=== PATIENT | male | born 1995 ===

== ENCOUNTER 2017-01-07 18:43 | Emergency (ER) | payer OTHER, MEDICAID ==
[2017-01-07 18:51] VITALS: BP 129/70; PULSE 73; RESP 18; TEMP 99; O2SAT 100
--- NOTE | 2017-01-07 19:19 | ED PDOC ---
Upper Extremity Pain/Injury Time Seen by Provider: 01/07/17 19:03 Chief Complaint (Nursing): Upper Extremity Problem/Injury Chief Complaint (Provider): Left Hand injury History Per: Patient History/Exam Limitations: no limitations Onset/Duration Of Symptoms: Hrs (prior to arrival ) Current Symptoms Are (Timing): Still Present Additional Complaint(s): Flaquito Valdez is a 21 year old male presenting to the ED for an evaluation of a laceration to his left second finger that he sustained just prior to arrival as he was cutting meat for a sandwich he was making while at work. He reports wound bled immediately, but notes he did not clean it. The patient is right hand dominant. Of note, the patient states his Tetanus is not up to date and is unsure of the name of his primary care physician. Past Medical History Reviewed: Historical Data, Nursing Documentation, Vital Signs Vital Signs: Last Vital Signs Temp 99 F 01/07/17 18:47 Pulse 73 01/07/17 18:47 Resp 18 01/07/17 18:47 BP 129/70 01/07/17 18:47 Pulse Ox 100 01/07/17 18:47 - Medical History PMH: No Chronic Diseases - Family History Family History: States: Unknown Family Hx - Social History Current smoker - smoking cessation education provided: No Ex-Smoker (has not smoked in the last 12 months): No Alcohol: None Drugs: Denies - Home Medications Home Medications: Ambulatory Orders Medication Instructions Recorded Cephalexin [Keflex] 1 tab PO QID #28 cap 06/17/14 Ibuprofen [Motrin] 1 tab PO Q8 PRN #21 tab 06/17/14 Sulfamethoxazole/Trimethopri 1 tab PO BID #14 tab 06/17/14 [Bactrim Ds 800 mg-160 mg] Clindamycin [Cleocin] 300 mg PO TID #30 cap 04/14/15 Sulfamethoxazole/Trimethopri 1 tab PO BID #14 tab 04/14/15 [Bactrim Ds 800 mg-160 mg] Cephalexin [Keflex] 500 mg PO Q6 #28 cap 06/23/15 Sulfamethoxazole/Trimethoprim 2 tab PO BID #28 tab 06/23/15 [Bactrim DS 800 mg-160 mg] - Allergies Allergies/Adverse Reactions: Allergies Allergy/AdvReac Type Severity Reaction Status Date / Time No Known Allergies Allergy Verified 06/17/14 13:48 Review of Systems ROS Statement: Except As Marked, All Systems Reviewed And Found Negative Musculoskeletal: Positive for: Hand Pain (injury to left second finger ) Physical Exam - Reviewed Nursing Documentation Reviewed: Yes Vital Signs Reviewed: Yes - Physical Exam Appears: Positive for: Non-toxic, No Acute Distress Head Exam: Positive for: ATRAUMATIC, NORMOCEPHALIC Extremity: Positive for: Other (1 cm laceration to distal phalynx, (+)mild active bleeding, (-)nailbed involvement, sensation intact) Neurologic/Psych: Positive for: Alert, Oriented (x3) - ECG O2 Sat by Pulse Oximetry: 100 (RA) Pulse Ox Interpretation: Normal Medical Decision Making Medical Decision Making: Time: 19:03 Impression: Left Hand Injury Plan: * See Procedure Note for wound repair * Adacel 0.5 ml IM Patient was advised to keep wound clean and dry for the first 24 hours, and then to clean wound daily and keep it dressed. Advised to return to the ED in 10-12 days for suture removal. Scribe Attestation: Documented by Jaclyn Vang, acting as a scribe for Nora Mariee PA-C. Provider Scribe Attestation: All medical record entries made by the Scribe were at my direction and personally dictated by me. I have reviewed the chart and agree that the record accurately reflects my personal performance of the history, physical exam, medical decision making, and the department course for this patient. I have also personally directed, reviewed, and agree with the discharge instructions and disposition. Procedures - Laceration/Wound Repair Left Hand Wound Length (cm): 1 Wound's Depth, Shape: superficial Wound Explored: clean Betadine Prep?: Yes Suture Size/Type: 5:0, nylon (ethilon) Number of Sutures: 1 Wound Complexity: Simple Disposition - Clinical Impression Clinical Impression: Finger laceration - Patient ED Disposition Is Patient to be Admitted: No Counseled Patient/Family Regarding: Diagnosis, Need For Followup - Disposition Referrals: [facility] [Outside] Disposition: Routine/Home Disposition Time: 19:45 Condition: STABLE Additional Instructions: Keep wound clean and dry. Keep wound covered. F/U with PMD, Urgent Care, or Return in 10-12 days for suture removal and wound check. Instructions: Care For Your Stitches (ED), Laceration (ED) Forms: [employer] (Ind[place]ian), [facility] ED School/Work Excuse Print Language: AZERI
== END 2017-01-07 20:50 | disposition home or self-care (01) ==
LOC: H.ER 18:43
DX: S61.211A Laceration without foreign body of left index finger without damage to nail, initial encounter (principal); W26.0XXA Contact with knife, initial encounter; Y99.0 Civilian activity done for income or pay; Z23 Encounter for immunization

== ENCOUNTER 2017-01-18 11:26 | Emergency (ER) | payer OTHER, MEDICAID ==
[2017-01-18 11:34] VITALS: BP 117/63; PULSE 87; RESP 20; TEMP 98.7; O2SAT 95; BMI 33.4
--- NOTE | 2017-01-18 12:08 | ED PDOC ---
HPI: Wound Care - HPI Chief Complaint (Nursing): Suture/Staple Removal Chief Complaint (Provider): Suture removal History Per: Patient Additional Complaint(s): Pt is a 21 yo male, no PMH, presents to ED for suture removal on left index finger. No redness or swelling noted. No complaints. Past Medical History Reviewed: Nursing Documentation, Vital Signs Vital Signs: Last Vital Signs Temp 98.7 F 01/18/17 11:33 Pulse 87 01/18/17 11:33 Resp 20 01/18/17 11:33 BP 117/63 01/18/17 11:33 Pulse Ox 95 01/18/17 11:33 - Medical History PMH: No Chronic Diseases - Surgical History Surgical History: No Surg Hx - Family History Family History: States: Unknown Family Hx - Living Arrangements Living Arrangements: With Family - Social History Current smoker - smoking cessation education provided: No Alcohol: None Drugs: Denies - Home Medications Home Medications: Ambulatory Orders Medication Instructions Recorded Cephalexin [Keflex] 1 tab PO QID #28 cap 06/17/14 Ibuprofen [Motrin] 1 tab PO Q8 PRN #21 tab 06/17/14 Sulfamethoxazole/Trimethopri 1 tab PO BID #14 tab 06/17/14 [Bactrim Ds 800 mg-160 mg] Clindamycin [Cleocin] 300 mg PO TID #30 cap 04/14/15 Sulfamethoxazole/Trimethopri 1 tab PO BID #14 tab 04/14/15 [Bactrim Ds 800 mg-160 mg] Cephalexin [Keflex] 500 mg PO Q6 #28 cap 06/23/15 Sulfamethoxazole/Trimethoprim 2 tab PO BID #28 tab 06/23/15 [Bactrim DS 800 mg-160 mg] - Allergies Allergies/Adverse Reactions: Allergies Allergy/AdvReac Type Severity Reaction Status Date / Time No Known Allergies Allergy Verified 06/17/14 13:48 Review of Systems ROS Statement: Except As Marked, All Systems Reviewed And Found Negative Musculoskeletal: Positive for: Other (suture removal) Physical Exam - Reviewed Nursing Documentation Reviewed: Yes Vital Signs Reviewed: Yes - Physical Exam Appears: Positive for: Well, Non-toxic, No Acute Distress Head Exam: Positive for: ATRAUMATIC, NORMAL INSPECTION, NORMOCEPHALIC Skin: Positive for: Normal Color, Warm, DRY Eye Exam: Positive for: EOMI, Normal appearance, PERRL ENT: Positive for: Normal ENT Inspection Neck: Positive for: Normal, Painless ROM Cardiovascular/Chest: Positive for: Regular Rate, Rhythm Respiratory: Positive for: CNT, Normal Breath Sounds Gastrointestinal/Abdominal: Positive for: Normal Exam, Bowel Sounds, Soft Back: Positive for: Normal Inspection Extremity: Positive for: Normal ROM Neurologic/Psych: Positive for: Alert, Oriented Comments: 1 suture removed by movie writer, no redness, swelling, edema or drainage from site - ECG O2 Sat by Pulse Oximetry: 95 Medical Decision Making Medical Decision Making: suture removed by movie writer Disposition - Clinical Impression Clinical Impression: Removal of suture - Patient ED Disposition Is Patient to be Admitted: No - Disposition Disposition: Routine/Home Disposition Time: 12:08 Condition: STABLE - POA Present On Arrival: None
== END 2017-01-18 12:19 | disposition home or self-care (01) ==
LOC: H.ER 11:26
DX: Z48.02 Encounter for removal of sutures (principal)

== ENCOUNTER 2018-04-19 12:47 | Emergency (ER) | payer MEDICAID ==
[2018-04-19 12:48] VITALS: BMI 32.6
--- NOTE | 2018-04-19 14:25 | ED PDOC ---
HPI: Abdomen Time Seen by Provider: 04/19/18 13:30 Chief Complaint (Nursing): Abdominal Pain Chief Complaint (Provider): Abdominal Pain History Per: Patient History/Exam Limitations: no limitations Onset/Duration Of Symptoms: Days (x1 day) Associated Symptoms: denies: Fever, Vomiting, Diarrhea Exacerbating Factors: denies: Cough Additional Complaint(s): Flaquito Valdez is a 22 year old male with no past medical history, who presents to the emergency department complaining of pain under the left rib that radiates to his chest, onset yesterday. Patient states that it is worse with deep breath but is unchanged with movement. He denies any fever, cough, diarrhea, or vomiting. no recent falls or straining. no history of blood clots or family history of it. PMD: Gini Barrios Past Medical History Reviewed: Historical Data, Nursing Documentation, Vital Signs Vital Signs: Last Vital Signs Temp 98.2 F 04/19/18 12:56 Pulse 94 H 04/19/18 12:56 Resp 16 04/19/18 12:56 BP 129/84 04/19/18 12:56 Pulse Ox 97 04/19/18 12:56 - Medical History PMH: No Chronic Diseases - Surgical History Surgical History: No Surg Hx - Family History Family History: Denies: No Known Family Hx Other Family History: no family history of dvt and pe. no history of cad - Social History Current smoker - smoking cessation education provided: No Ex-Smoker (has not smoked in the last 12 months): No Alcohol: None Drugs: Denies - Home Medications Home Medications: Ambulatory Orders Medication Instructions Recorded Cephalexin [Keflex] 1 tab PO QID #28 cap 06/17/14 Ibuprofen [Motrin] 1 tab PO Q8 PRN #21 tab 06/17/14 Sulfamethoxazole/Trimethopri 1 tab PO BID #14 tab 06/17/14 [Bactrim Ds 800 mg-160 mg] Clindamycin [Cleocin] 300 mg PO TID #30 cap 04/14/15 Sulfamethoxazole/Trimethopri 1 tab PO BID #14 tab 04/14/15 [Bactrim Ds 800 mg-160 mg] Cephalexin [Keflex] 500 mg PO Q6 #28 cap 06/23/15 Sulfamethoxazole/Trimethoprim 2 tab PO BID #28 tab 06/23/15 [Bactrim DS 800 mg-160 mg] - Allergies Allergies/Adverse Reactions: Allergies Allergy/AdvReac Type Severity Reaction Status Date / Time No Known Allergies Allergy Verified 04/19/18 12:56 Review of Systems ROS Statement: Except As Marked, All Systems Reviewed And Found Negative Constitutional: Negative for: Fever Respiratory: Negative for: Cough Gastrointestinal: Positive for: Abdominal Pain (left rib pain radiating to chest ). Negative for: Vomiting, Diarrhea Physical Exam - Reviewed Nursing Documentation Reviewed: Yes Vital Signs Reviewed: Yes - Physical Exam Appears: Positive for: Non-toxic, No Acute Distress Head Exam: Positive for: ATRAUMATIC, NORMOCEPHALIC Skin: Positive for: Normal Color, Warm, Dry Eye Exam: Positive for: Normal appearance, EOMI, PERRL ENT: Positive for: Normal ENT Inspection Neck: Positive for: Normal, Painless ROM, Supple Cardiovascular/Chest: Positive for: Regular Rate, Rhythm, Chest Non Tender. Negative for: Murmur Respiratory: Positive for: Normal Breath Sounds. Negative for: Respiratory Distress Gastrointestinal/Abdominal: Positive for: Normal Exam, Soft. Negative for: Tenderness Back: Positive for: Normal Inspection. Negative for: L CVA Tenderness, R CVA Tenderness, Vertebral Tenderness Extremity: Positive for: Normal ROM. Negative for: Pedal Edema, Deformity Neurologic/Psych: Positive for: Alert, Oriented (x3) - Laboratory Results Result Diagrams: 04/19/18 15:30 04/19/18 15:30 - ECG ECG Rhythm: Positive for: Sinus Rhythm (normal) Rate: 76 O2 Sat by Pulse Oximetry: 97 (RA) Pulse Ox Interpretation: Normal Medical Decision Making Medical Decision Making: Time: 1420 Impression: l chest wall pain with breathing, rule out cardiac versus Musculoskeletal pain. more likely muscular as pt has no cardiac risk factors. Plan: --Chest xray 2 views: to rule out cardiac or pulmonary etiology --CMP --Troponin I --CBC with differential --Motrin Tab 600 mg PO 1549 Chest X-ray FINDINGS: LUNGS: No active pulmonary disease. PLEURA: No significant pleural effusion identified. No pneumothorax apparent. CARDIOVASCULAR: No aortic atherosclerotic calcification present. Normal cardiac size. No pulmonary vascular congestion. OSSEOUS STRUCTURES: No significant abnormalities. VISUALIZED UPPER ABDOMEN: Normal. OTHER FINDINGS: None. IMPRESSION: No active disease. 1726 Labs are normal including the troponin. ekg WNL. patient feels slightly better w motrin, will be discharged with diagnosis of muslculoskeletal pain. pt has a pcp, instructed to follow up as an outpatient. pt agreeable to plan. instructed to retunr immediately with any worsening or changing of pain Scribe Attestation: Documented by Narendra Weir, acting as a scribe for Rachel Romo MD. Provider Scribe Attestation: All medical record entries made by the Scribe were at my direction and personally dictated by me. I have reviewed the chart and agree that the record accurately reflects my personal performance of the history, physical exam, medical decision making, and the department course for this patient. I have also personally directed, reviewed, and agree with the discharge instructions and disposition. Disposition - Clinical Impression Clinical Impression: Muscular pain - Patient ED Disposition Is Patient to be Admitted: No Counseled Patient/Family Regarding: Studies Performed, Diagnosis, Need For Followup - Disposition Disposition: Routine/Home Disposition Time: 17:28 Condition: IMPROVED Additional Instructions: follow up with your doctor in 1-2 days take motrin for pain return to the ED with any worsening or concerning symptoms Instructions: Muscle and Bone Pain (DC) Forms: [employer] ([place]), [facility] ED School/Work Excuse Wells Criteria for PE - Wells Criteria for Pulmonary Embolism Clinical Signs and Symptoms of DVT: No P.E is #1 Diagnosis, or Equally Likely: No Heart Rate >100: No Immobilization at least 3 days;Surgery previous 4 weeks: No Previous, objectively diagnosed PE or DVT: No Hemoptysis: No Malignancy w/treatment within 6 months, or palliative: No Total Score: 0
--- NOTE | 2018-04-19 15:52 | RAD ---
Date of service: 04/19/2018 HISTORY: LEFT RIB PAIN COMPARISON: No prior. TECHNIQUE: Chest PA and lateral FINDINGS: LUNGS: No active pulmonary disease. PLEURA: No significant pleural effusion identified. No pneumothorax apparent. CARDIOVASCULAR: No aortic atherosclerotic calcification present. Normal cardiac size. No pulmonary vascular congestion. OSSEOUS STRUCTURES: No significant abnormalities. VISUALIZED UPPER ABDOMEN: Normal. OTHER FINDINGS: None. IMPRESSION: No active disease.
[2018-04-19 15:59] LABS: BASO % 0.5 % (0.0-2.0); EOS # 0.1 K/uL (0.0-0.7); EOS % 1.1 % (0.0-4.0); HEMOGLOBIN 15.6 g/dL (12.0-18.0); LYMPH % 22.9 % (20.0-40.0); MEAN CELL VOLUME 90.1 fl (80.0-94.0); MEAN CORPUSCULAR HEMOGLOBIN 29.9 pg (27.0-31.0); MEAN CORPUSCULAR HGB CONC 33.2 g/dL (33.0-37.0); MEAN PLATELET VOLUME 9.3 fl (7.2-11.7); MONO # 0.8 K/uL (0.0-0.8); MONO % 9.3 % (0.0-10.0); NEUT # 5.7 K/uL (1.8-7.0); NEUT % 66.2 % (50.0-75.0); NRBC % 0.2 % (0.0-0.0); RBC 5.23 Mil/uL (4.40-5.90); RED CELL DISTRIBUTION WIDTH 13.7 % (11.5-14.5); WHITE BLOOD COUNT 8.6 K/uL (4.8-10.8)
[2018-04-19 16:38] LABS: ALB/GLOB RATIO 1.3 (1.0-2.1); ALBUMIN 4.7 g/dL (3.5-5.0); ALT/SGPT 60 U/L (21-72); AST/SGOT 42 U/L (17-59); BLOOD UREA NITROGEN 24 mg/dl (9-20); CALCIUM 9.8 mg/dL (8.4-10.2); GFR NON-AFRICAN AMERICAN > 60
[2018-04-19] MEDS ORDERED: Albuterol 0.083% Inhal Sol (2.5 mg/3 mL) UD INH ONE (17:43)
[2018-04-19] MEDS ORDERED: Albuterol 0.083% Inhal Sol (2.5 mg/3 mL) UD ONE (18:27)
[2018-04-19 18:34] VITALS: BP 127/66; RESP 18; TEMP 98
[2018-04-20 10:59] VITALS: PULSE 76; O2SAT 97
== END 2018-04-19 18:51 | disposition home or self-care (01) ==
LOC: H.ER 12:47
DX: R07.89 Other chest pain (principal); Z87.891 Personal history of nicotine dependence